=== PATIENT | male | born 1950 | race Caucasian/White ===

== ENCOUNTER 2018-06-08 22:14 | Inpatient (IN) | payer OTHER ==
[~2018-06-08] VITALS: Ht 188 cm; Wt 119.4 kg
[2018-06-08] MEDS ORDERED: ONDANSETRON 4MG/2ML VIAL (J2405) IV ONE (23:15)
[2018-06-08 23:51] LABS: BASO % 0.4 % (0.0-1.0); EOS # 0.1 10^3/uL (0.0-0.50); EOS % 1.1 % (0.0-3.0); HEMATOCRIT 42.8 % (42.0-52.0); HEMOGLOBIN 14.8 g/dl (13.5-17.5); LYMPH # 0.9 10^3/uL (1.5-4.5); LYMPH % 8.4 % (24.0-44.0); MEAN CORPUSCULAR HEMOGLOBIN 28.7 pg (27.0-33.0); MEAN CORPUSCULAR HGB CONC 34.6 g/dl (32.0-36.5); MEAN CORPUSCULAR VOLUME 83.1 fl (80.0-96.0); MONO # 0.4 10^3/uL (0.0-0.8); MONO % 3.5 % (0.0-5.0); NEUTROPHILS # 9.7 10^3/uL (1.8-7.7); NEUTROPHILS % 86.2 % (36.0-66.0); PLATELET COUNT, AUTOMATED 169 10^3/uL (150-450); RED BLOOD COUNT 5.15 10^6/uL (4.30-6.10); WHITE BLOOD COUNT 11.2 10^3/uL (4.0-10.0)
[2018-06-08] MEDS ORDERED: ISOVUE-370 76% 100ML VIAL (Q9967) As Ordered ONE (23:58)
[2018-06-09 00:03] LABS: INR 0.96; PARTIAL THROMBOPLASTIN TIME 31.5 SECONDS (25.4-37.6); PROTHROMBIN TIME 12.9 SECONDS (12.1-14.4)
[2018-06-09 00:31] LABS: ALBUMIN 3.3 GM/DL (3.2-5.2); ALT/SGPT 16 U/L (12-78); BILIRUBIN,DIRECT 0.2 MG/DL (0.0-0.2); BILIRUBIN,TOTAL 0.6 MG/DL (0.2-1.0); BLOOD UREA NITROGEN 29 MG/DL (7-18); CALCIUM LEVEL 7.8 MG/DL (8.8-10.2); CARBON DIOXIDE LEVEL 22 MEQ/L (21-32); CHLORIDE LEVEL 105 MEQ/L (98-107); CPK CREATINE PHOSPHOKINASE 54 U/L (39-308); CREATININE FOR GFR 1.06 MG/DL (0.70-1.30); GLOMERULAR FILTRATION RATE > 60.0 (>49); GLUCOSE, FASTING 252 MG/DL (70-100); LIPASE 218 U/L (73-393); MB/CK RELATIVE INDEX 3.52 (< OR =4); SODIUM LEVEL 139 MEQ/L (136-145); TROPONIN I < 0.02 NG/ML (< 0.10)
[2018-06-09] MEDS ORDERED: FLOM0.4C39 PO (00:39)
[2018-06-09] MEDS ORDERED: IRBE300T12 PO ×2 (00:39→06:17)
[2018-06-09] MEDS ORDERED: ONGL1TAB9 PO ×2 (00:39→06:17)
[2018-06-09] MEDS ORDERED: GLYB5TA PO (00:39)
[2018-06-09] MEDS ORDERED: ATOR1TAB21 PO ×2 (00:39→06:17)
[2018-06-09] MEDS ORDERED: INVO300T PO ×2 (00:39→06:17)
[2018-06-09] MEDS ORDERED: ASPI81TA85 PO (00:39)
[2018-06-09] MEDS ORDERED: FINA5TAB2 PO ×2 (00:39→06:17)
[2018-06-09] MEDS ORDERED: METF850T4 PO ×2 (00:39→06:17)
[2018-06-09] MEDS ORDERED: METOCLOPRAMIDE INJ 10MG/2ML VIAL (J2765) IV ONE (01:00)
[2018-06-09] MEDS ORDERED: PROMETHAZINE INJ 25 MG/ML VIAL (J2550) IM ONE (01:00)
--- NOTE | 2018-06-09 01:39 | REPVR ---
EXAM: CT Head Without Contrast EXAM DATE/TIME: 06/08/2018 11:44 PM CLINICAL HISTORY: 68 years old, male; Signs and symptoms; Dizziness; Additional info: Lightheaded, dizziness, v TECHNIQUE: Axial computed tomography images of the head/brain without contrast. All CT scans at this facility use at least one of these dose optimization techniques: automated exposure control; mA and/or kV adjustment per patient size (includes targeted exams where dose is matched to clinical indication); or iterative reconstruction. COMPARISON: No relevant prior studies available. FINDINGS: There is no acute intracranial hemorrhage, extra axial hematoma, or midline shift. There is parenchymal volume loss, slightly greater involving the frontal lobes. The ventricles are not dilated. There is intracranial atherosclerosis. No CT findings are seen at the current time to suggest changes of acute territorial vascular infarction. Note is made however, that CT changes, may lag clinical findings in acute CVA. If clinically indicated, consideration could be given to MRI with diffusion weighted imaging, due to its greater sensitivity, for detection of acute ischemic change. Intracranial calcifications are incidentally noted. No pericranial scalp hematoma is seen. No acute cranial vault fracture is seen. No fluid is seen within the visualized paranasal sinuses or mastoid air cells. IMPRESSION: No evidence for acute intracranial abnormality. Incidental findings discussed above. Electronically signed by: Toby Nicolas On 06/09/2018 01:38:49 AM
--- NOTE | 2018-06-09 01:50 | REPVR ---
EXAM: CT Chest With Contrast EXAM DATE/TIME: 06/08/2018 11:44 PM CLINICAL HISTORY: 68 years old, male; Signs and symptoms; Other: Dizzy; Additional info: Lightheaded, dizziness, v TECHNIQUE: Axial computed tomography images of the chest with intravenous contrast. All CT scans at this facility use at least one of these dose optimization techniques: automated exposure control; mA and/or kV adjustment per patient size (includes targeted exams where dose is matched to clinical indication); or iterative reconstruction. Coronal and sagittal reformatted images were created and reviewed. MIP reconstructed images were created and reviewed. CONTRAST: 75 ml of iso administered intravenously. COMPARISON: No relevant prior studies available. FINDINGS: HEART AND VASCULATURE: There is mild to moderate cardiac enlargement. No significant pericardial effusion. There is some calcification at the aortic valve. There is coronary artery disease. There is mild fusiform dilation of the ascending thoracic aorta up to 41.8 mm in diameter. No thoracic aortic dissection. There is thoracic aortic atherosclerosis. This examination is not optimized for assessment of pulmonary emboli, however no large central emboli are seen to the level of the kamlesh. Diameter of the main pulmonary trunk is 31.3 mm. MEDIASTINUM: No mediastinal gas. The visualized thyroid gland is within normal limits. No mediastinal hematoma. Prominent mediastinal fat, likely related to body habitus. Small amount of simple appearing fluid noted within the pericardial recesses . Small mediastinal and hilar lymph nodes are seen. No lymphadenopathy by size criteria. No periesophageal inflammation, gas or fluid. LUNGS: The lungs are symmetrically expanded. There is no consolidation, pneumothorax or pleural effusion. Scattered reticular opacities are noted, likely secondary to atelectasis or scarring, greatest towards the lung bases. No suspicious pulmonary parenchymal mass. No obvious central tracheobronchial abnormality. UPPER ABDOMEN: No free air or free fluid within the visualized uppermost abdomen. No hiatal hernia. Incompletely evaluated bilateral indeterminate adrenal nodules up to 3 cm in diameter. These extend below the level of imaging. Consider nonemergent MRI for further evaluation. Visualized portions of colon are slightly distended with fecal material, upto 5.5 cm in diameter which could be correlated clinically for possibility of mild constipation. MSK AND BODY WALL: Small nonspecific axillary lymph nodes. No acute fracture. Degenerative changes of the spine are noted. IMPRESSION: Mild to moderate cardiac enlargement. Mild fusiform dilation of the ascending thoracic aorta up to 41.8 mm in diameter. There is coronary artery disease. Mild atelectasis and/or pulmonary parenchymal scarring. Indeterminate, incompletely evaluated bilateral adrenal nodules. Nonemergent evaluation as discussed above. Other incidental findings discussed above. Electronically signed by: Toby Nicolas On 06/09/2018 01:50:03 AM
[2018-06-09] MEDS ORDERED: diphenhydrAMINE INJ 50MG/ML VIAL (J1200) IV STA (02:02)
[2018-06-09] MEDS ORDERED: HALOPERIDOL 5 MG/ML VIAL (J1630) IV STA (02:02)
[2018-06-09] MEDS: GASTROGRAFIN SOLUTION 30ML PO SCH ×2 (02:45→03:15)
[2018-06-09 03:32] LABS: CPK CREATINE PHOSPHOKINASE 58 U/L (39-308); MB/CK RELATIVE INDEX 3.62 (< OR =4); TROPONIN I < 0.02 NG/ML (< 0.10)
[2018-06-09] MEDS ORDERED: NS 1,000 ML IV ONE (04:15)
--- NOTE | 2018-06-09 04:29 | REPVR ---
EXAM: CT Abdomen and Pelvis Without Contrast EXAM DATE/TIME: 06/09/18 (2:11am) CLINICAL HISTORY: 68 year old male with persistent vomiting and lightheadedness TECHNIQUE: Axial computed tomography images of the abdomen and pelvis without contrast. All CT scans at this facility use at least one of these dose optimization techniques: automated exposure control; mA and/or kV adjustment per patient size (includes targeted exams where dose is matched to clinical indication); or iterative reconstruction. Coronal and sagittal reformatted images were created and reviewed. COMPARISON: No relevant prior studies available FINDINGS: The patient received IV contrast for CT-CHEST examination, approx. 3 hours earlier. Lower thorax: No pleural effusions. Nonspecific streaky changes in the mid and lower lung zones (probable atelectasis and/or scarring). No pleural effusions. Coronary artery calcifications. ABDOMEN: Liver: Normal. No solid mass. Gallbladder and bile ducts: Distended gallbladder. No definite calcified gallstones. No ductal dilatation. Pancreas: Normal. No ductal dilatation. Spleen: Normal. No splenomegaly. Adrenals: Right adrenal enlargement (2.5 x 1.3 cm in axial dimensions). Enlarged left adrenal gland (approx. 2.1 cm avg. diameter). Kidneys and ureters: No hydronephrosis. Bilateral nonspecific perinephric stranding. Small faint focal hyperdensity (6 x 3 mm size) posteriorly in the left kidney, below the hilar level (of unclear significance). Stomach and bowel: Normal. No bowel obstruction. No mucosal thickening. Appendix: No evidence of appendicitis. PELVIS: Bladder: Distended urinary bladder, filled with opacified urine. Reproductive: Enlarged prostate gland (approx. 6.7 x 7.3 x 6.5 cm in dimensions). ABDOMEN and PELVIS: Intraperitoneal space: Normal. No free air. No significant fluid collection. Bones/joints: No acute fracture nor dislocation. Soft tissues: Unremarkable. Vasculature: Normal. No abdominal aortic aneurysm. Lymph nodes: Normal. No enlarged lymph nodes. IMPRESSION: No definite acute pathology. Bilateral adrenal enlargement (see measurements above). Comparison with prior CT scans is suggested, if available. Enlarged prostate gland. Bilateral nonspecific perinephric stranding --- perhaps chronic in nature; pyelonephritis cannot be excluded, eg. Clinical and urinalysis correlation are suggested. Small faint focal hyperdensity (6 x 3 mm size) posteriorly in the left kidney, below the hilar level --- of unclear significance; perhaps a small proteinaceous cyst, eg. Electronically signed by: Ericka Marcum On 06/09/2018 04:29:14 AM
[2018-06-09] MEDS ORDERED: HumuLIN R (REGULAR) INSULIN (NovoLIN R) **100U/ML** PER UNIT IV ONE (04:30)
--- NOTE | 2018-06-09 05:56 | ECGEPIP ---
Stationary ECG Study [facility] - ED Test Date: 2018-06-08 Pat Name: GILSON GAVIRIA Department: Room: - Gender: M [employer]man: [facility] : 1949-09-20 Requested By: MARIELY Thayer PA-C Order Number: [id number] Reading MD: Ernesto Presley Measurements Intervals Sully Rate: 80 P: 34 IA: 201 QRS: 78 QRSD: 106 T: 46 QT: 383 QTc: 443 Interpretive Statements SINUS RHYTHM WITH SINUS ARRHYTHMIA WITH FIRST DEGREE AV BLOCK NO PRIORS FOR COMPARISON Electronically Signed On 06-09-2018 5:55:56 EST by Ernesto Presley
[2018-06-09] MEDS ORDERED: GLYB25TA PO (06:17)
[2018-06-09] MEDS ORDERED: NS 1,000 ML IV SCH (06:30)
[2018-06-09] MEDS ORDERED: MECLIZINE 12.5 MG TAB PO PRN (06:30)
[2018-06-09] MEDS ORDERED: GLUCAGON FOR INJ 1 MG VIAL (J1610) SC PRN (06:45)
[2018-06-09] MEDS ORDERED: NICOTINE 21MG/24HR 1 EA TRANSDERMAL TD PRN (06:45)
[2018-06-09] MEDS ORDERED: DEXTROSE 50% 50 ML SYRINGE IV PRN (06:45)
[2018-06-09] MEDS ORDERED: GLUCOSE 4 GM CHEW TABLET PO PRN (06:45)
[2018-06-09 06:59] LABS: MAGNESIUM LEVEL 2.5 MG/DL (1.8-2.4)
--- NOTE | 2018-06-09 07:26 | HPE ---
DATE OF ADMISSION: 06/09/2018 CHIEF COMPLAINT: Dizziness, nausea and vomiting, that started suddenly tonight while the patient was driving. HISTORY OF PRESENT ILLNESS: The patient is a 68-year-old male with significant past medical history of diabetes, benign prostatic hypertrophy (BPH), hyperlipidemia, hypertension, who presents to the emergency room with dizziness, nausea, a few episodes of nonbloody, nonbilious vomiting that started tonight while he was driving from [place] to [place]. He had been driving for six hours thus far. He had to well puller suddenly because he suddenly felt nauseous and he felt dizzy. The patient denies that the room is spinning. He states that he feels unsteady on his feet and that his going to fall over. He has no other focal neurological deficits. He denies any shortness of breath or chest pain. He denies any abdominal pain, constipation, diarrhea or urinary symptoms. The patient initially presents today to the emergency room with a fingerstick of 257. He was given some IV fluids and insulin coverage, however his symptoms did not improve. His coordination is intact on neurological exam. He has no focal deficits. PAST MEDICAL HISTORY: See history of present illness. PAST SURGICAL HISTORY: None. HOME MEDICATIONS: Include: - glyburide - aspirin - Lipitor - finasteride - metformin - tamsulosin - Invokana ALLERGIES: No known drug allergies. SOCIAL HISTORY: He is a current smoker, smokes three packs per day. Denies alcohol or illicit drug use. FAMILY HISTORY: Diabetes. REVIEW OF SYSTEMS: A 12 point review of systems was completed, all of which were negative except those listed in the HPI. VITAL SIGNS ON ADMISSION: Temperature 96.6, pulse rate of 82, respiratory rate of 18, 96% on room air, blood pressure 139/66. PHYSICAL EXAMINATION: GENERAL: He is well nourished in no apparent distress. HEAD: Normocephalic, atraumatic. EYES: Extraocular movements are intact. Pupils equal, round, reactive to light. NECK: Supple. No jugular venous pressure (JVP). LUNGS: Clear to auscultation bilaterally. No crackles, wheezes, rales or rhonchi. CARDIOVASCULAR: Regular rate and rhythm. Normal S1 and S2. No murmurs, gallops, or rubs. ABDOMEN: Soft, nontender, nondistended. Positive bowel sounds. No rebound or guarding. EXTREMITIES: No pitting edema or calf tenderness. SKIN: Intact. No rashes, lesions or breakdowns. NEUROLOGICAL EXAM: Alert and oriented times three. No focal deficits appreciated on exam. LABS AND IMAGING COMPLETED IN THE EMERGENCY DEPARTMENT: White count 11, hemoglobin and hematocrit of 14/42, platelet count of 169. Coags within normal limits. Chemistry shows a BUN and creatinine of 29/1.06. Troponin negative times two. Lactate within normal limits. EKG shows sinus rhythm with sinus arrhythmia. Nonspecific intraventricular conduction delay. Initial fingerstick of 257, repeat 308 and 260. IMAGING: Head CT shows no evidence of acute intracranial abnormality. Chest CT shows mild to moderate cardiac enlargement. Mild fusiform dilation of the ascending thoracic aorta, 4.1 cm. Coronary artery disease. Mild atelectasis and/or pulmonary parenchymal scarring. Indeterminate, incompletely evaluated bilateral adrenal nodules. CT of the abdomen and pelvis shows no definite acute pathology. Bilateral adrenal enlargement. Bilateral nonspecific perinephric stranding. Small faint focal hyperdensity posteriorly in the left kidney. ASSESSMENT/PLAN: Dizziness and nausea possibly secondary to dehydration. Orthostatics. Will fluid hydrate and will treat the uncontrolled hyperglycemia. Will get an MRI to assess for brainstem or cerebellar stroke. Will give meclizine in case this is vertiginous in origin. The patient denies the room spitting. Will fluid hydrate. Meclizine as needed. Will send a urinalysis (UA) to assess for any urinary tract infection (UTI). Diabetes/hyperglycemia. Insulin sliding scale. IV fluids. Hold oral hyperglycemics. For benign prostatic hypertrophy (BPH), continue finasteride. Hold tamsulosin in the possible setting of orthostatics. Will check daily orthostatics. Hypertension. Continue home medications. Support of deep vein thrombosis (DVT). Heparin subcu. Gastrointestinal (GI) prophylaxis not indicated. Diet. Cardiac/diabetic diet. For adrenal enlargement as well as adrenal incidentalomas, nonemergent MRI can be likely completed as an outpatient.
[2018-06-09] MEDS ORDERED: HumaLOG INSULIN (NovoLOG) PER UNIT SC SCH (07:30)
[2018-06-09] MEDS: NS 1,000 ML IV SCH ×2 (08:27→14:41)
[2018-06-09] MEDS: HEPARIN SOD (PORCINE) 5000 UNITS/ML VIAL SC SCH ×3 (08:33→21:12)
[2018-06-09] MEDS: TAMSULOSIN 0.4 MG CAP PO SCH (08:33)
[2018-06-09] MEDS: ATORVASTATIN 20 MG TAB PO SCH ×2 (08:33→21:10)
[2018-06-09] MEDS ORDERED: LEVEMIR (INSULIN DETEMIR) 1 UNITS/0.01ML SC SCH (09:00)
[2018-06-09] MEDS: METOCLOPRAMIDE INJ 10MG/2ML VIAL (J2765) IV SCH ×3 (09:26→21:12)
[2018-06-09 09:36] LABS: TROPONIN I < 0.02 NG/ML (< 0.10)
[2018-06-09] MEDS: ONDANSETRON 4MG/2ML VIAL (J2405) IV PRN (10:10)
[2018-06-09] MEDS: IRBESARTAN 150 MG TAB PO SCH (10:12)
[2018-06-09] MEDS: FINASTERIDE 5 MG TAB PO SCH ×2 (10:12→21:10)
--- NOTE | 2018-06-09 11:45 | REP ---
MRI BRAIN WITHOUT CONTRAST: HISTORY: Dizziness. Assess for CVA. Comparison brain CT study is from 06/09/2018. TECHNIQUE: Axial and sagittal imaging planes are utilized for T1- and T2-weighted scans. Sequences include spin-echo, fast spin echo, FLAIR, and diffusion weighted sequences. MRI FINDINGS: No bony calvarial lesion is seen. Craniocervical junction and upper cervical cord are normal in appearance. There is no MR evidence of significant paranasal sinus disease. No intraorbital abnormality is appreciated. There is generalized volume loss. Diffusion weighted scan show no evidence to suggest acute ischemia. There is no evidence of intracranial hemorrhage. There are periventricular white matter changes consistent with small vessel atherosclerotic microvascular changes. IMPRESSION: Small vessel periventricular white matter changes. No acute intracranial abnormality. Electronically Signed by Júnior Patino MD 06/09/2018 03:16 P
[2018-06-09] MEDS: HumaLOG INSULIN (NovoLOG) PER UNIT SC SCH ×3 (12:30→23:48)
[2018-06-09 14:25] VITALS: BP 128/59
[2018-06-09] MEDS ORDERED: MECLIZINE 12.5 MG TAB PO ONE (14:30)
--- NOTE | 2018-06-09 14:46 | IPNPDOC ---
Date Seen The patient was seen on 06/09/18. Progress Note SUBJECTIVE: Patient is a 68-year-old male seen and examined this morning after his MRI. States to be dizziness and still have nausea. He has no complaints and his does request we talk to his physician in [place] so he can be kept in the loop. OBJECTIVE PHYSICAL EXAMINATION: VITAL SIGNS: Please see below. GENERAL: Pleasant 68-year-old male who is well-nourished and appears in no apparent distress HEENT: Atraumatic normocephalic, pupils are equal round and reactive to light supple neck with no JVD peripheral CARDIOVASCULAR: Her rate and rhythm normal S1-S2 sounds no audible murmurs rubs or gallops RESPIRATORY: Clear to auscultate bilaterally no audible crackles wheezing or Rales ABDOMINAL: Soft nontender nondistended positive bowel sounds in all 4 quadrants EXTREMITIES: Lower extremity edema or tenderness NEUROLOGICAL: Alert and oriented 3. LABORATORY DATA, IMAGING STUDIES, MICROBIOLOGY: Please see below. DVT prophylaxis ordered?: Yes ASSESSMENT AND PLAN: The patient is a 68-year-old male presents to the emergency room with dizziness, nausea, a few episodes of nonbloody, nonbilious vomiting that started tonight while he was driving from [place] to [place]. PROBLEMS: Dizziness, nausea and vomiting -Unsure secondary to dehydration versus inner ear labyrinthitis -Has a recent sick contact with his who has an URI -Will obtain orthostatics -IV fluids: 100 mL/h -MRI of the brain -negative for CVA -Vestibular PT -c/w Meclizine 12.5 mg + Reglan 5 mg IV -UA to assess possible UTI for he does have a white count of 12.2 Diabetes/hyperglycemia. -Continue with insulin sliding scale -Because we have held his home oral hypoglycemics -c/w Levemir 10 units daily to get better glycemic control For benign prostatic hypertrophy (BPH), -continue finasteride. -Hold tamsulosin, if orthostatics are negative can consider restarting Hypertension -c/w Irbesartan Hyperlipidemia -c/w Lipitor 20 mg DVT ppx Heparin subcu. Diet. NPO For adrenal enlargement as well as adrenal incidentalomas, -nonemergent MRI can be likely completed as an outpatient. VS, I&O, 24H, Fishbone Vital Signs/I&O Vital Signs Date Time Temp Pulse Resp B/P (MAP) Pulse Ox O2 Delivery O2 Flow Rate FiO2 06/09/18 14:00 89 121/56 (77) 93 06/09/18 12:30 18 Room Air 06/08/18 22:48 96.6 Laboratory Data 24H LABS Laboratory Tests 2 06/08/18 23:38: Immature Granulocyte % (Auto) 0.4, White Blood Count 11.2H, Red Blood Count 5.15, Hemoglobin 14.8, Hematocrit 42.8, Mean Corpuscular Volume 83.1, Mean Corpuscular Hemoglobin 28.7, Mean Corpuscular Hemoglobin Concent 34.6, Red Cell Distribution Width 13.9, Platelet Count 169, Neutrophils (%) (Auto) 86.2H, Lymphocytes (%) (Auto) 8.4L, Monocytes (%) (Auto) 3.5, Eosinophils (%) (Auto) 1.1, Basophils (%) (Auto) 0.4, Neutrophils # (Auto) 9.7H, Lymphocytes # (Auto) 0.9L, Monocytes # (Auto) 0.4, Eosinophils # (Auto) 0.1, Basophils # (Auto) 0.0, Nucleated Red Blood Cells % (auto) 0.0, Anion Gap 12, Glomerular Filtration Rate > 60.0, Lactic Acid Level 1.3, Calcium Level 7.8L, Aspartate Amino Transf (AST/SGOT) 13, Alanine Aminotransferase (ALT/SGPT) 16, Alkaline Phosphatase 71, Total Bilirubin 0.6, Direct Bilirubin 0.2, Total Creatine Kinase 54, Creatine Kinase MB 2.0, Creatine Kinase MB Relative Index 3.52, Troponin I < 0.02, Total Protein 6.0L, Albumin 3.3, Albumin/Globulin Ratio 1.22, Lipase 218, Thyroid Stimulating Hormone (TSH) 1.980 06/08/18 23:43: Prothrombin Time 12.9, Prothromb Time International Ratio 0.96, Activated Partial Thromboplast Time 31.5 06/08/18 23:52: Bedside Glucose (Misc Panel) 257H 06/09/18 02:59: Total Creatine Kinase 58, Creatine Kinase MB 2.0, Creatine Kinase MB Relative Index 3.62, Troponin I < 0.02, Thyroid Stimulating Hormone (TSH) 1.250, Magnesium Level 2.5H 06/09/18 04:16: Bedside Glucose (Misc Panel) 308H 06/09/18 05:06: Bedside Glucose (Misc Panel) 260H 06/09/18 07:51: D-Dimer, Quantitative 482.72 06/09/18 09:01: Troponin I < 0.02 06/09/18 09:18: Bedside Glucose (Misc Panel) 261H 06/09/18 13:12: Bedside Glucose (Misc Panel) 240H CBC/BMP Laboratory Tests 06/08/18 23:38 Red Blood Count 5.15, Mean Corpuscular Volume 83.1, Mean Corpuscular Hemoglobin 28.7, Mean Corpuscular Hemoglobin Concent 34.6, Red Cell Distribution Width 13.9, Neutrophils (%) (Auto) 86.2 H, Lymphocytes (%) (Auto) 8.4 L, Monocytes (%) (Auto) 3.5, Eosinophils (%) (Auto) 1.1, Basophils (%) (Auto) 0.4, Neutrophils # (Auto) 9.7 H, Lymphocytes # (Auto) 0.9 L, Monocytes # (Auto) 0.4, Eosinophils # (Auto) 0.1, Basophils # (Auto) 0.0 GME ATTESTATION GME ATTESTATION My faculty preceptor for this patient encounter was physically present during the encounter and was fully available. All aspects of the patient interview, examination, medical decision making process, and medical care plan development were reviewed and approved by the faculty preceptor. The faculty preceptor is aware and concurs with the plan as stated in the body of this note and will attest to such by his/her cosignature. ATTENDING NOTE I have both independently examined this patient as well as reviewed the note I have discussed in detail the findings and plan of treatment as documented in the note. I will continue to follow the patient and offer further guidance to the patients care as necessary during this hospital stay. FRANK Robbins MD, DO Jun 09, 2018 14:46 DEON SARKAR MD Jun 12, 2018 10:55
[2018-06-09 15:14] LABS: C REACTIVE PROTEIN QUANTITATIV 0.63 MG/DL (0.00-0.30)
[2018-06-09 16:00] VITALS: BP_SYST 115; BP_SYST 162; BP_SYST 182; BP_DIAS 54; BP_DIAS 76; BP_DIAS 82
[2018-06-09] MEDS: predniSONE 20 MG TAB PO SCH (16:20)
[2018-06-09] MEDS: MECLIZINE 12.5 MG TAB PO SCH ×2 (17:34→23:49)
[2018-06-09 19:29] LABS: APPEARANCE, URINE CLEAR (CLEAR); BACTERIA, URINE AUTO NEGATIVE (NEGATIVE); BILIRUBIN, URINE AUTO NEGATIVE (NEGATIVE); BLOOD, URINE BLOOD NEGATIVE (NEGATIVE); COLOR, URINE YELLOW (YELLOW); GLUCOSE, URINE (UA) AUTO 3+ mg/dL (NEGATIVE); KETONE, URINE AUTO 1+ mg/dL (NEGATIVE); LEUKOCYTE ESTERASE, URINE AUTO NEGATIVE (NEGATIVE); NITRITE, URINE AUTO NEGATIVE (NEGATIVE); PROTEIN, URINE AUTO 2+ mg/dL (NEGATIVE); RBC, URINE AUTO 1 /HPF (0-3); SPECIFIC GRAVITY URINE AUTO 1.025 (1.002-1.035); SQUAMOUS EPITHELIAL CELL UR AU 0 /HPF (0-6); UROBILINOGEN, URINE AUTO 0.2 mg/dL (0.0-2.0); WBC, URINE AUTO 0 /HPF (0-3)
[2018-06-09 20:00] VITALS: BP 125/59
[2018-06-09] MEDS: LEVEMIR (INSULIN DETEMIR) 1 UNITS/0.01ML SC SCH (21:11)
[2018-06-10] VITALS (8 sets, daily range): BP systolic 112–161; BP diastolic 52–76
[2018-06-10] MEDS: NS 1,000 ML IV SCH (01:33)
[2018-06-10] MEDS: ONDANSETRON 4MG/2ML VIAL (J2405) IV PRN (03:59)
[2018-06-10 05:59] LABS: HEMATOCRIT 43.3 % (42.0-52.0); HEMOGLOBIN 14.5 g/dl (13.5-17.5); MEAN CORPUSCULAR HEMOGLOBIN 28.9 pg (27.0-33.0); MEAN CORPUSCULAR HGB CONC 33.5 g/dl (32.0-36.5); MEAN CORPUSCULAR VOLUME 86.4 fl (80.0-96.0); PLATELET COUNT, AUTOMATED 193 10^3/uL (150-450); RED BLOOD COUNT 5.01 10^6/uL (4.30-6.10)
[2018-06-10 06:40] LABS: BLOOD UREA NITROGEN 35 MG/DL (7-18); C REACTIVE PROTEIN QUANTITATIV 1.56 MG/DL (0.00-0.30); CALCIUM LEVEL 8.3 MG/DL (8.8-10.2); CARBON DIOXIDE LEVEL 28 MEQ/L (21-32); CHLORIDE LEVEL 110 MEQ/L (98-107); CREATININE FOR GFR 1.16 MG/DL (0.70-1.30); GLOMERULAR FILTRATION RATE > 60.0 (>49); GLUCOSE, FASTING 173 MG/DL (70-100); MAGNESIUM LEVEL 2.9 MG/DL (1.8-2.4); POTASSIUM SERUM 4.5 MEQ/L (3.5-5.1); SODIUM LEVEL 147 MEQ/L (136-145)
[2018-06-10] MEDS: HEPARIN SOD (PORCINE) 5000 UNITS/ML VIAL SC SCH ×3 (06:53→20:41)
[2018-06-10] MEDS: HumaLOG INSULIN (NovoLOG) PER UNIT SC SCH ×3 (06:54→17:50)
[2018-06-10] MEDS: METOCLOPRAMIDE INJ 10MG/2ML VIAL (J2765) IV SCH ×3 (06:54→20:42)
[2018-06-10] MEDS: MECLIZINE 12.5 MG TAB PO SCH ×3 (06:56→17:50)
[2018-06-10] MEDS: TAMSULOSIN 0.4 MG CAP PO SCH (08:45)
[2018-06-10] MEDS: predniSONE 20 MG TAB PO SCH (08:45)
[2018-06-10] MEDS: IRBESARTAN 150 MG TAB PO SCH (08:46)
--- NOTE | 2018-06-10 11:57 | IPNPDOC ---
Date Seen The patient was seen on 06/10/18. Progress Note SUBJECTIVE: Patient is a 68-year-old male seen this morning. He was resting comfortably in bed does not appear in acute distress. As reported by nursing the patient continues to have a little bit of vomiting after drinking some water but he is eagerly asking for more fluid for he feels dry. He worked with PT states that his vestibular PT was negative and believe this is more labyrinthitis infl ammation. His dizziness has improved and he is more communicative morning. He was started on prednisone 40 mg daily for the next 5 days and then will start a short taper. OBJECTIVE PHYSICAL EXAMINATION: VITAL SIGNS: Please see below. GENERAL: Pleasant 68-year-old male who is well-nourished and appears in no apparent distress HEENT: Atraumatic normocephalic, pupils are equal round and reactive to light supple neck with no JVD peripheral CARDIOVASCULAR: Her rate and rhythm normal S1-S2 sounds no audible murmurs rubs or gallops RESPIRATORY: Clear to auscultate bilaterally no audible crackles wheezing or Rales ABDOMINAL: Soft nontender nondistended positive bowel sounds in all 4 quadrants EXTREMITIES: Lower extremity edema or tenderness NEUROLOGICAL: Alert and oriented 3. LABORATORY DATA, IMAGING STUDIES, MICROBIOLOGY: Please see below. DVT prophylaxis ordered?: Yes ASSESSMENT AND PLAN: The patient is a 68-year-old male presents to the emergency room with dizziness, nausea, a few episodes of nonbloody, nonbilious vomiting that started tonight while he was driving from [place] to [place]. PROBLEMS: Viral labyrinthitis -Has a recent sick contact with his who has an URI -IV fluids: 100 mL/h -MRI of the brain -negative for CVA -Vestibular PT- negative -c/w Meclizine 12.5 mg + Reglan 5 mg IV -c/w Prednisone 40 mg x 5 days, then short taper Diabetes/hyperglycemia. -Continue with insulin sliding scale -Because we have held his home oral hypoglycemics -c/w Levemir 10 units qhs to get better glycemic control For benign prostatic hypertrophy (BPH), -continue finasteride. -Hold tamsulosin, if orthostatics are negative can consider restarting Hypertension -c/w Irbesartan Hyperlipidemia -c/w Lipitor 20 mg DVT ppx Heparin subcu. Diet. Advance diet as tolerated currently clear liquids For adrenal enlargement as well as adrenal incidentalomas, -nonemergent MRI can be likely completed as an outpatient. VS, I&O, 24H, Fishbone Vital Signs/I&O Vital Signs Date Time Temp Pulse Resp B/P (MAP) Pulse Ox O2 Delivery O2 Flow Rate FiO2 06/10/18 08:46 127/55 06/10/18 08:00 98.7 66 18 94 06/09/18 12:30 Room Air I&O- Last 24 Hours up to 6 AM 06/10/18 06:00 Intake Total 420 ml Output Total 625 ml Balance -205 ml Laboratory Data 24H LABS Laboratory Tests 2 06/09/18 13:12: Bedside Glucose (Misc Panel) 240H 06/09/18 17:31: Bedside Glucose (Misc Panel) 279H 06/09/18 18:59: Urine Appearance CLEAR, Urine Color YELLOW, Urine pH 5.0, Urine Specific Cass 1.025, Urine Protein 2+H, Urine Glucose (UA) 3+H, Urine Ketones 1+H, Urine Urobilinogen 0.2, Urine Bilirubin NEGATIVE, Urine Leukocyte Esterase NEGATIVE, Urine Blood NEGATIVE, Urine Nitrite NEGATIVE, Urine WBC (Auto) 0, Urine RBC (Auto) 1, Urine Hyaline Casts (Auto) 0, Urine Bacteria (Auto) NEGATIVE, Urine Squamous Epithelial Cells 0, Urine Sperm (Auto) 06/09/18 21:07: Bedside Glucose (Misc Panel) 179H 06/10/18 05:41: Nucleated Red Blood Cells % (auto) 0.0, Anion Gap 9, Glomerular Filtration Rate > 60.0, Blood Urea Nitrogen 35H, Creatinine 1.16, Sodium Level 147#H, Potassium Level 4.5, Chloride Level 110H, Carbon Dioxide Level 28, Calcium Level 8.3L, Magnesium Level 2.9H, C-Reactive Protein, Quantitative 1.56H CBC/BMP Laboratory Tests 06/10/18 05:41 Red Blood Count 5.01, Mean Corpuscular Volume 86.4, Mean Corpuscular Hemoglobin 28.9, Mean Corpuscular Hemoglobin Concent 33.5, Red Cell Distribution Width 14.2, Calcium Level 8.3 L Microbiology Microbiology 06/09/18 Respiratory Virus Panel (PCR) ([facility]) - Final, Complete GME ATTESTATION GME ATTESTATION My faculty preceptor for this patient encounter was physically present during the encounter and was fully available. All aspects of the patient interview, e xamination, medical decision making process, and medical care plan development were reviewed and approved by the faculty preceptor. The faculty preceptor is aware and concurs with the plan as stated in the body of this note and will attest to such by his/her cosignature. ATTENDING NOTE I have both independently examined this patient as well as reviewed the note I have discussed in detail the findings and plan of treatment as documented in the note. I will continue to follow the patient and offer further guidance to the patients care as necessary during this hospital stay. FRANK Robbins MD, DO Jun 10, 2018 11:57 DEON SARKAR MD Jun 12, 2018 11:00
[2018-06-10] MEDS: ATORVASTATIN 20 MG TAB PO SCH (20:40)
[2018-06-10] MEDS: FINASTERIDE 5 MG TAB PO SCH (20:40)
[2018-06-10] MEDS: LEVEMIR (INSULIN DETEMIR) 1 UNITS/0.01ML SC SCH (20:41)
[2018-06-10] MEDS ORDERED: diphenhydrAMINE 25 MG CAP PO ONE (22:00)
[2018-06-11] MEDS: MECLIZINE 12.5 MG TAB PO SCH ×4 (00:38→17:15)
[2018-06-11 05:16] LABS: HEMATOCRIT 41.2 % (42.0-52.0); HEMOGLOBIN 13.9 g/dl (13.5-17.5); MEAN CORPUSCULAR HEMOGLOBIN 29.2 pg (27.0-33.0); MEAN CORPUSCULAR HGB CONC 33.7 g/dl (32.0-36.5); MEAN CORPUSCULAR VOLUME 86.6 fl (80.0-96.0); PLATELET COUNT, AUTOMATED 168 10^3/uL (150-450); RED BLOOD COUNT 4.76 10^6/uL (4.30-6.10); WHITE BLOOD COUNT 9.3 10^3/uL (4.0-10.0)
[2018-06-11 05:36] LABS: BLOOD UREA NITROGEN 29 MG/DL (7-18); CARBON DIOXIDE LEVEL 29 MEQ/L (21-32); CHLORIDE LEVEL 106 MEQ/L (98-107); CREATININE FOR GFR 0.97 MG/DL (0.70-1.30); GLOMERULAR FILTRATION RATE > 60.0 (>49); GLUCOSE, FASTING 148 MG/DL (70-100); MAGNESIUM LEVEL 2.8 MG/DL (1.8-2.4); POTASSIUM SERUM 4.2 MEQ/L (3.5-5.1); SODIUM LEVEL 140 MEQ/L (136-145)
[2018-06-11] MEDS: METOCLOPRAMIDE INJ 10MG/2ML VIAL (J2765) IV SCH ×3 (06:48→21:02)
[2018-06-11] MEDS: HEPARIN SOD (PORCINE) 5000 UNITS/ML VIAL SC SCH ×3 (06:48→21:02)
[2018-06-11] MEDS: HumaLOG INSULIN (NovoLOG) PER UNIT SC SCH ×4 (06:49→21:01)
[2018-06-11 08:00] VITALS: BP 145/73
[2018-06-11] MEDS: predniSONE 20 MG TAB PO SCH (08:50)
[2018-06-11] MEDS: TAMSULOSIN 0.4 MG CAP PO SCH (08:50)
[2018-06-11] MEDS: IRBESARTAN 150 MG TAB PO SCH (08:51)
[2018-06-11 12:00] VITALS: BP 148/66
--- NOTE | 2018-06-11 14:35 | IPNPDOC ---
Date Seen The patient was seen on 06/11/18. Progress Note SUBJECTIVE: Patient is a 68-year-old male seen today. He states that he is feeling well with the nausea and vomiting except he does feel a little unsteady with his feet. He has tolerating food that is provided by his family for he is Yaz[place] and and it has to be kosher. He also has a complaint of a chronic diabetic foot ulcer on his right foot that is being evaluated by a compound worker in [place] and he's been taking antibiotics, for the past 6 months for this and he would like it to be continued while he is admitted. He believes that his right foot ulcer is infected and swollen but he cannot feel pain due to diabetic neuropathy. There is no overnight reports by nursing OBJECTIVE PHYSICAL EXAMINATION: VITAL SIGNS: Please see below. GENERAL: Pleasant 68-year-old male who is well-nourished and appears in no apparent distress HEENT: Atraumatic normocephalic, pupils are equal round and reactive to light supple neck with no JVD peripheral CARDIOVASCULAR: Her rate and rhythm normal S1-S2 sounds no audible murmurs rubs or gallops RESPIRATORY: Clear to auscultate bilaterally no audible crackles wheezing or Rales ABDOMINAL: Soft nontender nondistended positive bowel sounds in all 4 quadrants EXTREMITIES: Lower extremity edema or tenderness. Chronic diabetic ulcer on the right planter aspect of the first metatarsal head measuring 2 x 3 cm non- erythematous non-tenderness with no drainage noted. Small 1 x 2 cm scab on the lateral aspect of the right foot nonerythematous no pus or drainage noted as well. NEUROLOGICAL: Alert and oriented 3. LABORATORY DATA, IMAGING STUDIES, MICROBIOLOGY: Please see below. DVT prophylaxis ordered?: Yes ASSESSMENT AND PLAN: The patient is a 68-year-old male presents to the emergency room with dizziness, nausea, a few episodes of nonbloody, nonbilious vomiting that started tonight while he was driving from [place] to [place]. PROBLEMS: Viral labyrinthitis -Has a recent sick contact with his who has an URI -IV fluids: 100 mL/h -MRI of the brain -negative for CVA -Vestibular PT- negative -c/w Meclizine 12.5 mg + Reglan 5 mg IV -c/w Prednisone 40 mg x 5 days till 06/13/18 , then short taper 30 mg on day 6, 20 mg on day 7, 10 mg on day8, and 5 mg on day 9 Diabetes/hyperglycemia. -Continue with insulin sliding scale -Because we have held his home oral hypoglycemics -c/w Levemir 10 units qhs to get better glycemic control Diabetic foot ulcer -Chronic in nature currently stable -Wound care consulted -Antibiotics not warranted at this time we'll not continue home Duricef For benign prostatic hypertrophy (BPH), -continue finasteride. -Hold tamsulosin, if orthostatics are negative can consider restarting Hypertension -c/w Irbesartan Hyperlipidemia -c/w Lipitor 20 mg DVT ppx Heparin subcu. Diet. 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 VS, I&O, 24H, Fishbone Vital Signs/I&O Vital Signs Date Time Temp Pulse Resp B/P (MAP) Pulse Ox O2 Delivery O2 Flow Rate FiO2 06/11/18 12:00 98.6 66 18 148/66 (93) 95 06/09/18 12:30 Room Air l I&O- Last 24 Hours up to 6 AM 06/11/18 06:00 Intake Total 560 ml Output Total 0 ml Balance 560 ml Laboratory Data 24H LABS Laboratory Tests 2 06/10/18 17:15: Bedside Glucose (Misc Panel) 382H 06/11/18 00:40: Bedside Glucose (Misc Panel) 183H 06/11/18 04:58: Nucleated Red Blood Cells % (auto) 0.0, Anion Gap 5L, Glomerular Filtration Rate > 60.0, Blood Urea Nitrogen 29H, Creatinine 0.97, Sodium Level 140, Potassium Level 4.2, Chloride Level 106, Carbon Dioxide Level 29, Calcium Level 8.0L, Magnesium Level 2.8H 06/11/18 11:20: Bedside Glucose (Misc Panel) 356H CBC/BMP Laboratory Tests 06/11/18 04:58 Red Blood Count 4.76, Mean Corpuscular Volume 86.6, Mean Corpuscular Hemoglobin 29.2, Mean Corpuscular Hemoglobin Concent 33.7, Red Cell Distribution Width 14.0, Calcium Level 8.0 L Microbiology Microbiology 06/09/18 Respiratory Virus Panel (PCR) ([facility]) - Final, Complete GME ATTESTATION GME ATTESTATION My faculty preceptor for this patient encounter was physically present during the encounter and was fully available. All aspects of the patient interview, examination, medical decision making process, and medical care plan development were reviewed and approved by the faculty preceptor. The faculty preceptor is aware and concurs with the plan as stated in the body of this note and will attest to such by his/her cosignature. ATTENDING NOTE I have both independently examined this patient as well as reviewed the note I have discussed in detail the findings and plan of treatment as documented in the note. I will continue to follow the patient and offer further guidance to the patients care as necessary during this hospital stay. FRANK Robbins MD, DO Jun 11, 2018 14:35 DEON SARKAR MD Jun 12, 2018 10:46
[2018-06-11 16:00] VITALS: BP 152/68
[2018-06-11] MEDS ORDERED: HumaLOG INSULIN (NovoLOG) PER UNIT SC SCH (17:30)
[2018-06-11 20:00] VITALS: BP 138/74
[2018-06-11] MEDS: FINASTERIDE 5 MG TAB PO SCH (21:00)
[2018-06-11] MEDS: LEVEMIR (INSULIN DETEMIR) 1 UNITS/0.01ML SC SCH (21:01)
[2018-06-11] MEDS: ATORVASTATIN 20 MG TAB PO SCH (21:03)
[2018-06-11] MEDS: diphenhydrAMINE 25 MG CAP PO PRN (21:03)
[2018-06-12] MEDS: MECLIZINE 12.5 MG TAB PO SCH ×4 (00:54→17:54)
[2018-06-12 01:40] VITALS: BP 158/82
[2018-06-12 04:45] VITALS: BP 110/68
[2018-06-12] MEDS: HEPARIN SOD (PORCINE) 5000 UNITS/ML VIAL SC SCH ×3 (05:18→21:13)
[2018-06-12] MEDS: METOCLOPRAMIDE INJ 10MG/2ML VIAL (J2765) IV SCH ×3 (05:18→21:13)
[2018-06-12 05:37] LABS: HEMATOCRIT 41.5 % (42.0-52.0); MEAN CORPUSCULAR HEMOGLOBIN 28.9 pg (27.0-33.0); MEAN CORPUSCULAR HGB CONC 33.7 g/dl (32.0-36.5); MEAN CORPUSCULAR VOLUME 85.7 fl (80.0-96.0); PLATELET COUNT, AUTOMATED 167 10^3/uL (150-450); RED BLOOD COUNT 4.84 10^6/uL (4.30-6.10); WHITE BLOOD COUNT 7.7 10^3/uL (4.0-10.0)
[2018-06-12 05:55] LABS: BLOOD UREA NITROGEN 24 MG/DL (7-18); CALCIUM LEVEL 7.9 MG/DL (8.8-10.2); CARBON DIOXIDE LEVEL 29 MEQ/L (21-32); CHLORIDE LEVEL 106 MEQ/L (98-107); CREATININE FOR GFR 0.92 MG/DL (0.70-1.30); GLOMERULAR FILTRATION RATE > 60.0 (>49); GLUCOSE, FASTING 158 MG/DL (70-100); MAGNESIUM LEVEL 2.5 MG/DL (1.8-2.4); POTASSIUM SERUM 3.9 MEQ/L (3.5-5.1); SODIUM LEVEL 140 MEQ/L (136-145)
--- NOTE | 2018-06-12 06:42 | IPNPDOC ---
Date Seen The patient was seen on 06/12/18. Progress Note SUBJECTIVE: Patient is a 68-year-old male seen today. He states that he is feeling well with the nausea and vomiting except he does feel a little unsteady with his feet. Continues to work with pt and nursing this morning to increase mobility. His dizziness has improved but he hasn't been ambulating much in his room. He states that he will later this morning though with assistance. Tolerate his meals without nausea vomiting or diarrhea. No overnight events were reported. Sugars were slightly elevated at 580 in the afternoon the day before but the patient was asymtompatic, 14 units were given. Adjustments will be made for lunch time ISS coverage. Patient denies chest pain, shortness of breath, nausea, vomiting, abdominal pain, dizziness with sitting or short walks around the room. OBJECTIVE PHYSICAL EXAMINATION: VITAL SIGNS: Please see below. GENERAL: Pleasant 68-year-old male who is well-nourished and appears in no apparent distress HEENT: Atraumatic normocephalic, pupils are equal round and reactive to light supple neck with no JVD peripheral CARDIOVASCULAR: Her rate and rhythm normal S1-S2 sounds no audible murmurs rubs or gallops RESPIRATORY: Clear to auscultate bilaterally no audible crackles wheezing or Rales ABDOMINAL: Soft nontender nondistended positive bowel sounds in all 4 quadrants EXTREMITIES: Lower extremity edema or tenderness. Chronic diabetic ulcer on the right planter aspect of the first metatarsal head measuring 2 x 3 cm non- erythematous non-tenderness with no drainage noted. Small 1 x 2 cm scab on the lateral aspect of the right foot nonerythematous no pus or drainage noted as well. NEUROLOGICAL: Alert and oriented 3. LABORATORY DATA, IMAGING STUDIES, MICROBIOLOGY: Please see below. DVT prophylaxis ordered?: Yes ASSESSMENT AND PLAN: The patient is a 68-year-old male presents to the emergency room with dizziness, nausea, a few episodes of nonbloody, nonbilious vomiting that started tonight while he was driving from [place] to [place]. PROBLEMS: Viral labyrinthitis -Has a recent sick contact with his who has an URI -IV fluids: 100 mL/h -MRI of the brain -negative for CVA -Vestibular PT- negative -c/w Meclizine 12.5 mg + Reglan 5 mg IV -c/w Prednisone 40 mg x 5 days till 06/13/18 , then short taper 30 mg on day 6, 20 mg on day 7, 10 mg on day8, and 5 mg on day 9 Diabetes/hyperglycemia. -Continue with insulin sliding scale -Because we have held his home oral hypoglycemics -c/w Levemir qhs to get better glycemic control Diabetic foot ulcer -Chronic in nature currently stable -Wound care consulted - appreciate recommendation. -Antibiotics not warranted at this time we'll not continue home Duricef For benign prostatic hypertrophy (BPH), -continue finasteride. -Hold tamsulosin, if orthostatics are negative can consider restarting Hypertension -c/w Irbesartan Hyperlipidemia -c/w Lipitor 20 mg DVT ppx Heparin subcu. Diet. 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 VS, I&O, 24H, Fishbone Vital Signs/I&O Vital Signs Date Time Temp Pulse Resp B/P (MAP) Pulse Ox O2 Delivery O2 Flow Rate FiO2 06/12/18 04:45 97.9 61 18 110/68 (82) 96 06/09/18 12:30 Room Air I&O- Last 24 Hours up to 6 AM 06/12/18 06:00 Intake Total 840 ml Output Total 0 ml Balance 840 ml Laboratory Data 24H LABS Laboratory Tests 2 06/11/18 11:20: Bedside Glucose (Misc Panel) 356H 06/11/18 17:17: Bedside Glucose (Misc Panel) 558*H 06/11/18 17:35: Bedside Glucose Confirm (Misc) 585*H 06/11/18 20:51: Bedside Glucose (Misc Panel) 406H 06/12/18 04:37: Nucleated Red Blood Cells % (auto) 0.0, Anion Gap 5L, Glomerular Filtration Rate > 60.0, Blood Urea Nitrogen 24H, Creatinine 0.92, Sodium Level 140, Potassium Level 3.9, Chloride Level 106, Carbon Dioxide Level 29, Calcium Level 7.9L, Magnesium Level 2.5H CBC/BMP Laboratory Tests 06/12/18 04:37 Red Blood Count 4.84, Mean Corpuscular Volume 85.7, Mean Corpuscular Hemoglobin 28.9, Mean Corpuscular Hemoglobin Concent 33.7, Red Cell Distribution Width 13.6, Calcium Level 7.9 L Microbiology Microbiology 06/09/18 Respiratory Virus Panel (PCR) ([facility]) - Final, Complete GME ATTESTATION GME ATTESTATION My faculty preceptor for this patient encounter was physically present during the encounter and was fully available. All aspects of the patient interview, examination, medical decision making process, and medical care plan development were reviewed and approved by the faculty preceptor. The faculty preceptor is aware and concurs with the plan as stated in the body of this note and will attest to such by his/her cosignature. ATTENDING NOTE I have both independently examined this patient as well as reviewed the note I have discussed in detail the findings and plan of treatment as documented in the note. I will continue to follow the patient and offer further guidance to the patients care as necessary during this hospital stay. FRANK Robbins MD, DO Jun 12, 2018 06:42 DEON SARKAR MD Jun 12, 2018 11:01
[2018-06-12 08:00] VITALS: BP 112/72
[2018-06-12] MEDS: HumaLOG INSULIN (NovoLOG) PER UNIT SC SCH ×4 (09:37→21:12)
[2018-06-12] MEDS: TAMSULOSIN 0.4 MG CAP PO SCH (09:37)
[2018-06-12] MEDS: IRBESARTAN 150 MG TAB PO SCH (09:37)
[2018-06-12] MEDS: predniSONE 20 MG TAB PO SCH (09:38)
[2018-06-12 12:00] VITALS: BP 158/76
[2018-06-12 16:00] VITALS: BP 148/70
[2018-06-12 20:00] VITALS: BP 122/78
[2018-06-12] MEDS ORDERED: LEVEMIR (INSULIN DETEMIR) 1 UNITS/0.01ML SC SCH (21:00)
[2018-06-12] MEDS: ATORVASTATIN 20 MG TAB PO SCH (21:13)
[2018-06-12] MEDS: diphenhydrAMINE 25 MG CAP PO PRN (21:13)
[2018-06-12] MEDS: FINASTERIDE 5 MG TAB PO SCH (21:13)
[2018-06-13] VITALS: BP 110/64
[2018-06-13 04:30] VITALS: BP 132/74
[2018-06-13] MEDS: METOCLOPRAMIDE INJ 10MG/2ML VIAL (J2765) IV SCH (05:21)
[2018-06-13] MEDS: MECLIZINE 12.5 MG TAB PO SCH ×3 (05:21→11:58)
[2018-06-13] MEDS: HEPARIN SOD (PORCINE) 5000 UNITS/ML VIAL SC SCH (05:23)
[2018-06-13 05:35] LABS: HEMATOCRIT 42.6 % (42.0-52.0); HEMOGLOBIN 14.7 g/dl (13.5-17.5); MEAN CORPUSCULAR HEMOGLOBIN 29.3 pg (27.0-33.0); MEAN CORPUSCULAR HGB CONC 34.5 g/dl (32.0-36.5); PLATELET COUNT, AUTOMATED 154 10^3/uL (150-450); RED BLOOD COUNT 5.01 10^6/uL (4.30-6.10); WHITE BLOOD COUNT 6.5 10^3/uL (4.0-10.0)
[2018-06-13 05:55] LABS: BLOOD UREA NITROGEN 22 MG/DL (7-18); CALCIUM LEVEL 8.1 MG/DL (8.8-10.2); CARBON DIOXIDE LEVEL 28 MEQ/L (21-32); CHLORIDE LEVEL 105 MEQ/L (98-107); CREATININE FOR GFR 0.83 MG/DL (0.70-1.30); GLOMERULAR FILTRATION RATE > 60.0 (>49); GLUCOSE, FASTING 197 MG/DL (70-100); MAGNESIUM LEVEL 2.2 MG/DL (1.8-2.4); POTASSIUM SERUM 3.8 MEQ/L (3.5-5.1); SODIUM LEVEL 139 MEQ/L (136-145)
[2018-06-13 08:00] VITALS: BP 138/66
[2018-06-13 08:33] VITALS: BP 138/66
[2018-06-13] MEDS: HumaLOG INSULIN (NovoLOG) PER UNIT SC SCH ×2 (08:33→11:58)
[2018-06-13] MEDS: IRBESARTAN 150 MG TAB PO SCH (08:33)
[2018-06-13] MEDS: TAMSULOSIN 0.4 MG CAP PO SCH (08:33)
[2018-06-13] MEDS ORDERED: predniSONE 10 MG TAB PO SCH (09:00)
[2018-06-13] MEDS ORDERED: REGL5TAB2 PO (10:23)
[2018-06-13] MEDS ORDERED: PRED5TA PO (10:24)
[2018-06-13] MEDS ORDERED: MECL12.575 PO (10:24)
--- NOTE | 2018-06-14 06:09 | DSES ---
DATE OF ADMISSION: 06/09/2018 DATE OF DISCHARGE: 06/13/2018 PRIMARY CARE PROVIDER: Dr. Perdomo at [facility]. FINAL DIAGNOSIS: 1. Viral labyrinthitis. 2. Diabetes with hyperglycemia. 3. Diabetic foot ulcer. 4. Benign prostatic hypertrophy (BPH). 5. Hypertension. 6. Dyslipidemia. 7. Adrenal lesion. HISTORY OF PRESENT ILLNESS: This is a 68-year-old male patient with underlying medical history of diabetes, BPH, dyslipidemia, hypertension also with a diabetic foot ulcers, obesity who came from [place] and presented to the emergency room after driving for four hours with dizziness, nausea, and vomiting, nonbloody, nonbilious and unable to stand, reported very unsteady. The patient's is sick with upper respiratory infection (URI). The patient also has a cough, denies any shortness of breath, denies any chest pain. No urinary complaints, denies any constipation, not tolerating liquids or solids. HOSPITAL COURSE: The patient was admitted to the hospital, intravenous (IV) fluids have been given. CT of the chest, CT head and CT of the abdomen and pelvis has been done. MRI of the brain shows no evidence of stroke. D-dimer is negative. Diagnosis of viral labyrinthitis is made. The patient was give Meclizine, vestibular physical therapy (PT) has been ordered, prednisone has also been ordered. The patient's oral hypoglycemic agents were held and insulin basal bolus has been prescribed and adjusted. Wound care is consulted for the patient's diabetic foot wound. The patient's home medications were continued. The patient's oral intake improved in 24 hours but discharge was delayed secondary to gait instability due to the above condition. Physical therapy was done. Currently the patient has passed physical therapy and is ready to be discharged for further care as an outpatient. VITAL SIGNS: Temperature 98, pulse 63, respirations 18, blood pressure 130/66, pulse ox 97% on room air. LABORATORY DATA: WBC 6.5, hemoglobin 14.7, hematocrit 42.6, platelets 154. Chemistries: Sodium 139, potassium 3.8, chloride 105, bicarbonate 28, BUN 22, creatinine 0.83, respiratory panel negative. PHYSICAL EXAMINATION: GENERAL: The patient is obese, alert, comfortable in no acute distress. HEENT: Normocephalic atraumatic. PULMONARY: Bilaterally clear. CARDIAC: Regular, S1, S2. ABDOMEN: Soft, nontender, obese, positive bowel sounds. EXTREMITIES: Chronic right plantar diabetic ulcer. No purulent drainage. Dorsalis pedis, posterior tibial (DP/PT) pulses tibialis 1+ bilateral. DISCHARGE MEDICATIONS: - meclizine 12.5 mg by mouth three times a day as needed - Reglan 5 mg by mouth three times a day - prednisone 5 mg tablet by mouth, take four tablets for the first day, two tablets for the second day, one tablet for the third and then stop - continue Lipitor 20 mg by mouth nightly - Invokana 300 mg by mouth daily - finasteride 5 mg by mouth nightly - glyburide 5 mg by mouth twice a day - irbesartan hydrochlorothiazide combination, 300 and 12.5 mg by mouth daily - metformin 850 mg by mouth twice a day - Onglyza 5 mg by mouth daily - Flomax 0.4 mg by mouth daily DISCHARGE INSTRUCTIONS: Please see primary care provider in 7-10 days. Need improved glucose control. Further workup for possible adrenal lesion which showed on CT scan. Also consider vascular work-up for peripheral vascular disease given the patient's nonhealing diabetic foot ulcer. Continue treatment for diabetic foot, also as per primary care provider, also recommended by physical therapy. Return to hospital if symptoms worsen.
== END 2018-06-13 13:08 | disposition home or self-care (01) | DRG 111 ==
LOC: M ED 22:14 → EDBD 22:14 → M ED INP 06-09 06:28 → M PCU 06-09 14:16
PROVIDERS: ADMIT Internal Medicine; ATTEND Hospitalist
DX: H83.09 Labyrinthitis, unspecified ear (principal); E11.621 Type 2 diabetes mellitus with foot ulcer; E11.65 Type 2 diabetes mellitus with hyperglycemia; N40.0 Benign prostatic hyperplasia without lower urinary tract symptoms; I10 Essential (primary) hypertension; E78.5 Hyperlipidemia, unspecified; E66.9 Obesity, unspecified; Z79.899 Other long term (current) drug therapy; E27.9 Disorder of adrenal gland, unspecified